=== PATIENT | male | born 1950 | race Caucasian/White ===

== ENCOUNTER → 2016-12-05 | Outpatient (CLI) | payer MEDICARE ==
--- NOTE | 2016-12-05 10:56 | FL ---
EXAMINATION: Cervical and Thoracic Esophagram DATE OF EXAM: 12/05/2016 9:19 AM CLINICAL INDICATION: 66-year-old male dysphagia, complaining of food getting stuck in the upper chest level. COMPARISON: Correlation CT 03/28/2011 Total Fluoroscopy Time: 2 minutes 18 seconds. FINDINGS: There is an initial episode of deep penetration with coating of the false cords. No jean paul aspiration seen. Otherwise, hypopharyngeal anatomy is preserved. The upper to middle third thoracic esophagus appears to have normal course, caliber, and motility. However, there is marked tortuosity and contour abnormality of the distal third esophagus with almost a corkscrew appearance and a couple large diverticula. There is dysmotility along this segment of the esophagus with prolonged pooling of contrast despite u pright positioning. A small hiatal hernia is present. Gastroesophageal reflux was not seen during the course of the exam . IMPRESSION: 1. Markedly tortuous distal third segment of the esophagus with segments of narrowing and dilatation and a couple large diverticula as well. Findings could be secondary to prior infection or inflammati on with subsequent stricture formation. Patient does not complain of any active pain to suggest esoph ageal spasm. The patient also denies any heartburn though stricturing and pulsion diverticula formati on from reflux esophagitis is also in the differential. Direct visualization should be considered. 2. Small hiatal hernia. 3. A single episode of deep laryngeal penetration during swallowing probably incidental. Clinically c orrelate. No aspiration.
== END | disposition home or self-care (01) ==
LOC: RADFLWHC 08:36
PROVIDERS: ATTEND Surgery
DX: K22.2 Esophageal obstruction (principal); K22.5 Diverticulum of esophagus, acquired; K22.8 Other specified diseases of esophagus; K44.9 Diaphragmatic hernia without obstruction or gangrene
CPT/HCPCS: 74220

== ENCOUNTER → 2016-12-27 | Day surgery (SDC) | payer MEDICARE ==
[2016-12-25 09:13] VITALS: BMI 22.3
[2016-12-27 11:30] VITALS: BP 129/85; PULSE 71; RESP 18; TEMP 98.2
== END ==
LOC: ORWHC2ENDO 10:59
PROVIDERS: ATTEND Internal Medicine Gastroenterology
DX: R13.10 Dysphagia, unspecified (principal)
CPT/HCPCS: 91010

== ENCOUNTER 2017-06-01 11:10 | Emergency (ER) | payer MEDICARE ==
[2017-06-01] MEDS ORDERED: HYDROmorphone 1 MG/ML 1 ML SYRINGE IM STA (11:18)
[2017-06-01] MEDS ORDERED: DIPH,PERTUS(ACELL)TETVAC-LF 0.5 ML VIAL IM ONE (11:18)
[2017-06-01 11:37] LABS: Basophils # (A) 0.1 k/uL (0-0.2); Basophils % (A) 1 %; CH 30.6; Eosinophils # (A) 0.1 k/uL (0-0.7); Eosinophils % (A) 1 %; HCT 45.8 % (39.0-53.0); HDW 2.66; HGB 15.8 gm/dL (13.0-17.5); Luc # (Auto) 0.15; Luc % (Auto) 2; Lymphocytes # (A) 2.5 k/uL (1.0-4.8); Lymphocytes % (A) 31 %; MCH 30.3 pg (25.0-35.0); MCHC 34.6 g/dL (31.0-37.0); MCV 87.7 fL (80.0-100.0); Mean Platelet Volume 6.9; Monocytes # (A) 0.5 k/uL (0-1.0); Monocytes % (A) 6 %; Neutrophils # (A) 4.9 k/uL (1.3-7.7); Neutrophils % (A) 60 %; RBC 5.23 m/uL (4.30-5.90); RDW 13.1 % (11.5-15.5); WBC 8.2 k/uL (3.8-10.6); WBC (Perox) 8.57
[2017-06-01 11:49] LABS: ALT 34 U/L (21-72); AST 26 U/L (17-59); Alkaline Phosphatase 75 U/L (38-126); Anion Gap 10 mmol/L; Blood Urea Nitrogen 20 mg/dL (9-20); Calcium 9.3 mg/dL (8.4-10.2); Carbon Dioxide 24 mmol/L (22-30); Chloride 105 mmol/L (98-107); Glucose 110 mg/dL (74-99); Non-African American GFR(MDRD) >60 (>60 ml/min/1.73 sqM); Potassium 3.9 mmol/L (3.5-5.1); Sodium 139 mmol/L (137-145); Total Bilirubin 0.8 mg/dL (0.2-1.3); Total Protein 6.9 g/dL (6.3-8.2)
[2017-06-01 11:50] LABS: Partial Thromboplastin Time 25.1 sec (22.0-30.0); Prothrombin Time 10.6 sec (9.0-12.0)
[2017-06-01] MEDS ORDERED: LORazepam 2 MG/ML SYRINGE IV STA (12:18)
[2017-06-01] MEDS ORDERED: HYDROmorphone 1 MG/ML 1 ML SYRINGE IVP STA ×3 (12:18→14:21)
--- NOTE | 2017-06-01 13:06 | XR ---
EXAMINATION TYPE: XR pelvis AP view, XR Hip Complete RT DATE OF EXAM: 06/01/2017 CLINICAL HISTORY: Pelvic and right hip pain after fall injury. TECHNIQUE: A single AP view of the pelvis is obtained. Two views of the right hip are obtained. COMPARISON: CT abdomen and pelvis March 28, 2011. FINDINGS: There is cortical disruption involving inner ring right acetabulum system with age indeterminate frac ture is no definitive lucency is identified, finding is new from March 28, 2011 CT. The hip and sacroi liac joints are maintained bilaterally. Pubic symphysis is maintained. There is asymmetric soft tissu e prominence on this level causing bladder deviation to the left. Two views of right hip show no additional acute fracture or dislocation. No focal lytic or sclerotic lesion seen in the proximal right femur. The overlying soft tissue is unremarkable. IMPRESSION: There is age indeterminant impaction fracture right acetabulum, acute comminuted fractur es suspected. Clinical correlation and correlation with mechanism of injury identified to help determ ine need for further investigation by CT scan.
--- NOTE | 2017-06-01 13:07 | XR ---
EXAMINATION TYPE: XR chest 1V portable DATE OF EXAM: 06/01/2017 COMPARISON: NONE HISTORY: Fall injury with chest pain. TECHNIQUE: Single frontal view of the chest is obtained. FINDINGS: There is chronic parenchymal change without suspicious focal air space opacity, pleural ef fusion, or pneumothorax seen. There is tracheal deviation to right of midline with asymmetric soft t issue prominence left paratracheal region. Consider thyroid goiter, other etiologies are not excluded . Need to further investigate by CT exam should be considered based on correlation with old outside x -rays. Exam is suboptimal as entire lung apices are not included. The cardiac silhouette size is with in normal limits. The osseous structures are intact. IMPRESSION: No acute cardiopulmonary process.
--- NOTE | 2017-06-01 13:08 | XR ---
EXAMINATION TYPE: XR shoulder complete RT DATE OF EXAM: 06/01/2017 CLINICAL HISTORY: Fall injury with right shoulder pain. TECHNIQUE: 2 views of the right shoulder are obtained. COMPARISON: None. FINDINGS: Osseous structures are demineralized. There is no acute fracture/dislocation evident in th e right shoulder. Moderate to severe Joint space loss and spurring glenohumeral joint and acromioclav icular joints is present. The visualized ribs are intact and unremarkable. IMPRESSION: There is no acute fracture or dislocation in the right shoulder.
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
[2017-06-01 14:27] VITALS: BP 120/68; PULSE 68; RESP 20; TEMP 97.8
== END 2017-06-01 14:20 | disposition other institution (70) ==
LOC: EC 11:10
DX: S32.401A Unspecified fracture of right acetabulum, initial encounter for closed fracture (principal); S80.211A Abrasion, right knee, initial encounter; S40.211A Abrasion of right shoulder, initial encounter; Z85.828 Personal history of other malignant neoplasm of skin; Z87.891 Personal history of nicotine dependence; Z88.0 Allergy status to penicillin; Z23 Encounter for immunization; V29.9XXA Motorcycle rider (driver) (passenger) injured in unspecified traffic accident, initial encounter; Y92.89 Other specified places as the place of occurrence of the external cause
CPT/HCPCS: 99291 ×2; 96374 ×2; 96375 ×2; 96376 ×2; 96372 ×2; 90471 ×2; 36415; 93005; 86900; 86901; 80053; 85025; 85610; 85730; 86850; 71010; 72170; 73502; 73030; 90715; J2060; J1170

== ENCOUNTER → 2017-11-13 | Outpatient (CLI) | payer MEDICARE ==
--- NOTE | 2017-11-13 11:43 | BD ---
EXAMINATION TYPE: MG DEXA axial skeleton. DATE OF EXAM: 11/13/2017 COMPARISON: NONE CLINICAL HISTORY: Osteoporosis screening . Postmenopausal female. Height: 5 ft 9 in Weight: 169 FRAX RISK QUESTIONS: Alcohol (3 or more units per day): NO Family History (Parent hip fracture): Glucocorticoids (More than 3mos): NO (Ex: prednisone, prednisolone, methylprednisolone, dexamethasone, and hydrocortisone). History of Fracture in Adulthood: YES Secondary Osteoporosis: 1. Type 1 Diabetes: NO 2. Hyperthyroidism: NO 3. Menopause before 45: NA 4. Malnutrition: NO 5. Chronic liver disease: NO Rheumatoid Arthritis: NO Current Tobacco Use: NO RISK FACTORS HISTORY OF: Hip Fracture (Right/Left): RT When: MAY 2017 History of Wrist Fracture: LT When: Surgery to Spine/Hip(right/left)/Wrist (right/left): RT HIP When: 2016 Active: YES Lost more than 2 inches in height since high school: YES MEDICATIONS: Additional Medications: NONE CALCIUM VIT D 3 Additional History: EXAM MEASUREMENTS: Bone mineral densitometry was performed using the [employer] System. Bone mineral density as measured about the Lumbar spine is: ----- L1-L4(G/cm2): 0.929 T Score Values are as follows: ----- L2: -2.5 ----- L3: -2.1 ----- L4: -2.2 ----- L1-L4: -2.1 BASELINE Bone mineral density about the L hip (g/cm2): 0.875 T Score values are as follows: -----L Neck: -1.2 -----L Total: -0.7 BASELINE IMPRESSION: Osteopenia (T Score between -2.5 and -1) as noted by T score values with regards to the lumbar spine and left hip. Note values approach osteoporosis within the lumbar spine. There is slightly increased risk of fracture and the patient may be considered for treatment. Re-Screen 2-5 years. NOTE: T-SCORE=SD OF THE YOUNG ADULT MEAN.
== END | disposition home or self-care (01) ==
LOC: RADBDWWP 08:39
PROVIDERS: ATTEND Internal Medicine
DX: M85.88 Other specified disorders of bone density and structure, other site (principal); M85.852 Other specified disorders of bone density and structure, left thigh; M81.0 Age-related osteoporosis without current pathological fracture
CPT/HCPCS: 77080

== ENCOUNTER → 2018-08-13 | Outpatient (CLI) | payer MEDICARE ==
--- NOTE | 2018-08-13 23:06 | US ---
EXAMINATION TYPE: US carotid duplex BILAT DATE OF EXAM: 08/13/2018 COMPARISON: NONE CLINICAL HISTORY: 67-year-old male I65.23 STENOSIS OF CAROTID ARTERIES. Stenosis TECHNIQUE: Carotid duplex ultrasound examination. Indirect Doppler criteria was utilized. FINDINGS: EXAM MEASUREMENTS: RIGHT: Peak Systolic Velocity (PSV) cm/sec ----- Right CCA: 112.9 ----- Right ICA: 122.6 ----- Right ECA: 138.6 ICA/CCA ratio: 1.1 RIGHT: End Diastole cm/sec ----- Right CCA: 34.2 ----- Right ICA: 36.2 ----- Right ECA: 25.0 LEFT: Peak Systolic Velocity (PSV) cm/sec ----- Left CCA: 107.8 ----- Left ICA: 120.5 ----- Left ECA: 133.4 ICA/CCA ratio: 1.1 LEFT: End Diastole cm/sec ----- Left CCA: 35.5 ----- Left ICA: 31.8 ----- Left ECA: 25.2 VERTEBRALS (direction of flow): Right Vertebral: Antegrade Left Vertebral: Antegrade Rhythm: Normal Mild atherosclerotic plaque is present bilaterally. No elevated velocities, no significant stenosis. Thyroid: 5.2 x 4.0 x 4.5cm mixed nodule left lobe IMPRESSION: 1. No hemodynamically significant stenosis appreciated in either internal carotid artery. 2. Incidentally, there is a 5.2 cm mixed solid cystic, but primarily solid nodule in the left lobe. D edicated thyroid ultrasound could be performed. FNA may be indicated. Criteria for Assigning % of Stenosis / Diameter reduction (Estimation based on the indirect measurements of the internal carotid artery velocities (ICA PSV). 1. Normal (no stenosis)=ICA PSV < 125 cm/s: ratio < 2.0: ICA EDV<40 cm/s. 2. Less than 50% stenosis=ICA PSV < 125 cm/s: ratio < 2.0: ICA EDV<40 cm/s. 3. 50 to 69% stenosis=ICA PSV of 125 to 230 cm/s: ration 2.0 ? 4.0: ICA EDV 40-100 cm/s. 4. Greater than 70% stenosis to near occlusion= ICA PSV > 230 cm/s: ratio > 4.0: ICA EDV > 100 cm/s. 5. Near occlusion= ICA PSV velocities may be low or undetectable: variable ratio and ICA EDV. 6. Total occlusion=unable to detect flow.
== END ==
LOC: RADUSWWP 15:32
PROVIDERS: ATTEND Internal Medicine
DX: I65.23 Occlusion and stenosis of bilateral carotid arteries (principal)
CPT/HCPCS: 93880

== ENCOUNTER → 2018-08-28 | Outpatient (CLI) | payer MEDICARE ==
--- NOTE | 2018-08-28 17:19 | US ---
EXAMINATION TYPE: US thyroid st tissue head/neck DATE OF EXAM: 08/28/2018 COMPARISON: NONE CLINICAL HISTORY: E04.1 thyroid nodule. Difficult exam due to large thyroid nodule- difficult to pene trate. GLAND SIZE: Right Lobe: 4.0 x 1.4 x 1.3 cm Overall Parenchyma: homogenous Left Lobe: 8.2 x 4.6 x 5.5 cm Overall Parenchyma: Difficult to visualize any normal thyroid tissue Isthmus Thickness: 0.4 cm NODULES RIGHT: # of nodules measured on right: 1 1. 0.3 X 0.3 x 0.3 cm isoechoic mixed nodule at the mid pole with well-defined margins; . This nod ule is wider than tall and shows intranodular vascularity. Prior size: x x cm LEFT: # of nodules measured on left: 2 1. 2.1 X 1.5 x 2.0 cm hypoechoic solid nodule at the upper pole with well-defined margins; . This nodule is wider than tall and shows intranodular vascularity. Prior size: No previous 2. 5.6 X 4.6 x 4.4 cm hypoechoic mixed nodule at the mid pole with well-defined margins; . This nod ule is wider than tall and shows intranodular vascularity. Prior size: no previous ISTHMUS: # of nodules measured in the isthmus: 0 Bilateral neck scanned, no evidence of lymphadenopathy. IMPRESSION: 1. Two left thyroid nodules larger than 1 cm. Consider nuclear medicine scan for correlation.
== END | disposition home or self-care (01) ==
LOC: RADUSWWP 16:16
PROVIDERS: ATTEND Internal Medicine
DX: E04.2 Nontoxic multinodular goiter (principal)
CPT/HCPCS: 76536

== ENCOUNTER → 2018-09-16 | Outpatient (CLI) | payer MEDICARE ==
--- NOTE | 2018-09-17 11:43 | NM ---
EXAMINATION TYPE: NM thyroid image w uptake DATE OF EXAM: 09/17/2018 COMPARISON: Ultrasound 08/28/2018 HISTORY: 67-year-old male with thyroid nodule TECHNIQUE: Thyroid iodine uptake is calculated and images performed after the oral administration of 313 uCi 1-123 Capsule. FINDINGS: Thyroid scan shows large cold nodule involving the left mid and lower pole extending just below the l evel of the suprasternal notch. The 4 hour iodine uptake is calculated at 8.0% (normal range 8-14%). The 24-hour iodine uptake is jamar culated at 18.8% (normal range 15-35%). IMPRESSION: Large cold nodule at the left mid and lower pole corresponding to the large 5.6 cm nodule seen on ult rasound. The other 2.1 cm left-sided nodule may also be a cold nodule as it is not distinctly identif ied on the thyroid scan. No abnormal increased iodine uptake to suggest a hyperactive nodule. FNA can be performed on the 2 large left-sided nodules.
== END | disposition home or self-care (01) ==
LOC: RADNMMAIN 08:41
PROVIDERS: ATTEND Internal Medicine
DX: E04.2 Nontoxic multinodular goiter (principal)
CPT/HCPCS: 78014; A9516

== ENCOUNTER 2018-10-06 08:05 | Day surgery (SDC) | payer MEDICARE ==
[2018-10-06 08:25] VITALS: BP 166/84; PULSE 87; RESP 20; TEMP 98.1
--- NOTE | 2018-10-06 10:11 | US ---
ULTRASOUND GUIDED FNA THYROID BIOPSY: CLINICAL HISTORY: Request for 2 left-sided thyroid nodules FNA FINDINGS: The procedure was explained to the patient. The risks, complications, benefits and alternatives were discussed and any questions were answered. Informed consent was obtained. Patient was placed supin e on the ultrasound table and prepped and draped in the usual sterile fashion. Utilizing a 25 gauge needle, five passes were made into the the requested 2 left-sided thyroid nodules. Patient was stable throughout the procedure. Pathology is pending. All elements of maximal barrier technique were utilized. IMPRESSION: 1. Successful ultrasound guided FNA thyroid biopsy.
== END 2018-10-06 09:45 | disposition home or self-care (01) ==
LOC: RADPROMAIN 08:05
PROVIDERS: ATTEND Internal Medicine
DX: E04.2 Nontoxic multinodular goiter (principal)
CPT/HCPCS: 10022; 76942; 88173; 88305

== ENCOUNTER 2021-02-10 08:45 | Day surgery (SDC) | payer MEDICARE ==
[2021-02-07 15:43] VITALS: BMI 21.6
[~2021-02-10 08:45] MED LIST: LACTATED RINGERS 1,000 ML IV SCH; LIDOCAINE 1% (10MG/ML) FOR IV START INTRADERMA PRN
[2021-02-10 09:06] VITALS: RESP 16; TEMP 97.6
[2021-02-10] MEDS ORDERED: PROPOFOL 10 MG/ML 20 ML VIAL IV ONE (09:30)
--- NOTE | 2021-02-10 09:46 | P.PCN ---
Date of Procedure: 02/10/21 Procedure(s) Performed: BRIEF HISTORY: Patient is a 70-year-old pleasant 8 male scheduled for an elective colonoscopy as a part of evaluation of prior history of colon polyps. Last colonoscopy was 5 years ago. PROCEDURE PERFORMED: Colonoscopy with biopsy PREOPERATIVE DIAGNOSIS: History of colon polyps. IV sedation per Anesthesia. PROCEDURE: After informed consent was obtained, the patient, was brought into the endoscopy unit. IV sedation was administered by Anesthesia under continuous monitoring. Digital rectal examination was normal. Initially the Olympus CF-160 flexible video colonoscope was then inserted in the rectum, gradually advanced into the cecum without any difficulty. Careful examination was performed as the scope was gradually being withdrawn. Ileocecal valve and the appendiceal orifice were visualized and appeared normal. Prep was excellent. Mucosa of the cecum, ascending colon, transverse colon, descending colon, sigmoid colon, and rectum appeared normal. Retroflexion was performed in the rectum and there was prominent mucosa noted just proximal to the dentate line measuring about 1 cm and possibility of polyp vsrectal prolapse was considered. Multiple biopsies were done from this area. Scattered sigmoid diverticulosis seen.. The patient tolerated the procedure well. IMPRESSION: Distal rectal polyp versus rectal prolapse just proximal to the dentate line status post biopsies Scattered sigmoid diverticulosis RECOMMENDATIONS: Findings of this examination were discussed with the patient as well as his family.. He was advised to follow with the biopsy results. If the biopsy reveals adenoma he can have a repeat colonoscopy in 5 years
[2021-02-10 10:22] VITALS: BP 137/86; PULSE 69
== END 2021-02-10 10:38 | disposition home or self-care (01) ==
LOC: ORWHC2ENDO 08:45
PROVIDERS: ATTEND Internal Medicine Gastroenterology
DX: Z12.11 Encounter for screening for malignant neoplasm of colon (principal); K62.1 Rectal polyp; K57.30 Diverticulosis of large intestine without perforation or abscess without bleeding; Z88.1 Allergy status to other antibiotic agents; Z85.828 Personal history of other malignant neoplasm of skin; Z86.010 Personal history of colon polyps
CPT/HCPCS: 88305; 45380; J2704

== ENCOUNTER 2022-04-27 11:17 | Day surgery (SDC) | payer MEDICARE ==
[2022-04-25 15:20] VITALS: BMI 22.3
[~2022-04-27 11:17] MED LIST changes: -LIDOCAINE 1% (10MG/ML) FOR IV START INTRADERMA PRN
[2022-04-27 11:45] VITALS: RESP 16; TEMP 97.2
[2022-04-27] MEDS ORDERED: LIDOCAINE 2% INJ 20 MG/ML (2 ML VIAL) ONE (12:37)
[2022-04-27] MEDS ORDERED: PROPOFOL 10 MG/ML 20 ML VIAL IV ONE (12:37)
--- NOTE | 2022-04-27 12:55 | P.PCN ---
Date of Procedure: 04/27/22 Procedure(s) Performed: BRIEF HISTORY: Patient is a 71-year-old, pleasant, white male scheduled for an upper endoscopy as a possible dilation as a part of evaluation of intermittent dysphagia to solids for the last 5 years duration.. PROCEDURE PERFORMED: Esophagogastroduodenoscopy with balloon dilation. PREOPERATIVE DIAGNOSIS: Intermittent dysphagia to solids of 5 years duration. IV sedation per anesthesia. PROCEDURE: After informed consent was obtained, the patient was brought into the endoscopy unit. IV sedation was administered by Anesthesia under continuous monitoring. Initially the Olympus GIF-140 video endoscope was inserted into the mouth. Esophagus intubated without any difficulty. It was gradually advanced into the stomach and duodenum and carefully examined. The bulb and the second part of the duodenum appeared normal. The scope at this time was withdrawn to the stomach, adequately insufflated with air, and upon careful examination, mucosa of the antrum, body, cardia and the fundus appeared normal. The scope was then withdrawn into the esophagus. The GE junction was located at 39 cm from the incisors. There was a distal esophageal whitish patent Schatzki's ring identified that was empirically dilated using 18-20 mm TTS balloon in a sequential fashion for 30 seconds. The entire esophagus had a corkscrew like appearance of intermittent esophageal diverticulum suspicious for severe esophageal dysmotilityl. There were no erosions or ulcerations seen and the patient tolerated the procedure well. IMPRESSION: 1. Corkscrew appearance of the entire esophagus with mid esophageal diverticulum suspicious for esophageal dysmotility. 2. Widely patent distal esophageal Schatzki's ring status post balloon dilation using 18-20 mm TTS balloon as. RECOMMENDATIONS: The findings of this examination were discussed with the patient his family. He was advised to follow up in office in 6 weeks. If he continues to have persistent dysphagia to be a candidate for esophageal manometry to evaluate for esophageal dysmotility
[2022-04-27 13:17] VITALS: BP 129/89; PULSE 65
== END 2022-04-27 14:05 | disposition home or self-care (01) ==
LOC: ORWHC2ENDO 11:17
PROVIDERS: ATTEND Internal Medicine Gastroenterology
DX: K22.2 Esophageal obstruction (principal); K22.5 Diverticulum of esophagus, acquired; Z88.0 Allergy status to penicillin; Z87.891 Personal history of nicotine dependence; Z80.8 Family history of malignant neoplasm of other organs or systems
CPT/HCPCS: 43249; J2704; J2001; C1726

== ENCOUNTER → 2024-04-17 | Outpatient (CLI) | payer MEDICARE ==
[2024-04-17 10:59] LABS: African American GFR (CKD) 88 (>60 ml/min/1.73 sqM); Blood Urea Nitrogen 22 mg/dL (9-20); Non-African American GFR(CKD) 76 (>60 ml/min/1.73 sqM)
--- NOTE | 2024-04-17 14:19 | CT ---
EXAMINATION TYPE: CT abdomen pelvis w con DATE OF EXAM: 04/17/2024 COMPARISON: 03/28/2011 HISTORY: RIGHT INGUINAL PAIN CT DLP: 628.2 mGycm CONTRAST: CT scan of the abdomen and pelvis is performed with Oral Contrast and with IV Contrast, patient injec osiris with 100 mL of Isovue 300. FINDINGS: LUNG BASES-: No visible nodule. No infiltrate. Small sliding-type hiatal hernia. LIVER/GB: No calcified gallstones. No space occupying hepatic lesion. Biliary tree is of normal ca liber. PANCREAS: No inflammation. No distinct mass. SPLEEN: No splenic enlargement. No lesion seen. ADRENALS: No nodule. No thickening. KIDNEYS/BLADDER: No hydronephrosis. No nephrolithiasis. No distinct renal mass. Urinary bladder g rossly unremarkable. BOWEL: Normal appendix. Normal bowel caliber. No inflammation. Sigmoid diverticulosis without diver ticulitis. GENITAL ORGANS: No gross abnormality. LYMPH NODES: No greater than 1cm abdominal or pelvic lymph nodes are appreciated. AORTA: No significant abnormality. OSSEOUS STRUCTURES: Postoperative changes right hemipelvis. OTHER: No significant additional abnormality is seen. IMPRESSION: 1. No evidence for ascites or acute intra-abdominal process.
== END | disposition home or self-care (01) ==
LOC: RADCTMAIN 10:18
PROVIDERS: ATTEND Internal Medicine Geriatric Medicine
DX: R18.8 Other ascites (principal)
CPT/HCPCS: 82565; 84520; 74177; 36415; Q9967

== ENCOUNTER 2024-06-15 06:08 | Day surgery (SDC) | payer MEDICARE ==
[2024-06-15] MEDS ORDERED: SODIUM CHLORIDE 0.9% 50 ML BAG IV ONE (06:40)
[2024-06-15] MEDS ORDERED: LACTATED RINGERS 1,000 ML BAG ONE (06:40)
[2024-06-15] MEDS ORDERED: BUPIVACAINE (PF) 0.25% 10 ML VIAL ONE (06:40)
[2024-06-15] MEDS ORDERED: ceFAZolin 10 GM VIAL IVPB ONE (06:40)
[2024-06-15] MEDS ORDERED: ONDANSETRON 4 MG/2 ML VIAL ONE (06:54)
[2024-06-15] MEDS ORDERED: DEXAMETHASONE SOD PHOSPHATE 4 MG/ML 1 ML VIAL ONE (06:54)
[2024-06-15] MEDS ORDERED: HEPARIN SODIUM,PORCINE 5,000 UNIT/ML 1 ML VIAL ONE (06:54)
[2024-06-15] MEDS ORDERED: ACETAMINOPHEN TAB 500 MG TAB ONE (06:54)
[2024-06-15] MEDS ORDERED: NEOSTIGMINE 1 MG/ML 10 ML VIAL ONE (07:35)
[2024-06-15] MEDS ORDERED: LIDOCAINE 1% INJ 10MG/ML (20 ML MDV) ONE (07:35)
[2024-06-15] MEDS ORDERED: PROPOFOL 10 MG/ML 20 ML VIAL IV ONE (07:35)
[2024-06-15] MEDS ORDERED: SUCCINYLCHOLINE CHLORIDE 200 MG/10 ML VIAL IV ONE (07:35)
[2024-06-15] MEDS ORDERED: KETOROLAC 15 MG/ML 1 ML VIAL ONE (07:35)
[2024-06-15] MEDS ORDERED: GLYCOPYRROLATE 0.2 MG/ML 2 ML VIAL ONE (07:35)
[2024-06-15] MEDS ORDERED: MIDAZOLAM 2 MG/2 ML VIAL ONE (07:35)
[2024-06-15] MEDS ORDERED: ROCURONIUM 10 MG/ML (5 ML VIAL) IV ONE (07:35)
[2024-06-15] MEDS ORDERED: fentaNYL (PF) 50 MCG/ML 2 ML AMP ONE (07:35)
--- NOTE | 2024-06-19 15:56 | OP ---
OPERATIVE REPORT DATE OF SERVICE : 06/15/2024 PREOPERATIVE DIAGNOSES: 1. Right inguinal hernia. 2. Right hydrocele. POSTOPERATIVE DIAGNOSES: 1. Right inguinal hernia. 2. Right hydrocele. PROCEDURES: Open repair of right inguinal hernia with mesh, drainage of right hydrocele. ANESTHESIA: General. COMPLICATIONS: None. DESCRIPTION OF PROCEDURE: The patient was brought and placed on the OR table in the supine position. The patient's right groin was prepped and draped sterilely. An oblique incision was made in the right groin. Dissection through the subcutaneous tissue took place using electrocautery. Small vessel was ligated using 3-0 silk ties. External oblique was incised with a scalpel and this was lengthened with the Metzenbaum scissors. The underlying spermatic cord structures were encircled with a Emmy drain. The spermatic cord was then dissected. The patient had a moderate-sized indirect hernia sac. There was scar nodularity along the hernia sac. The hernia sac was dissected back to the internal inguinal ring and ligated using 2 separate 0 Ethibond stick tie sutures. The excess sac was excised and sent to Pathology. There was no visible direct hernia seen. A 3-inch x 6-inch Prolene mesh was cut to fit along the exposed floor of the inguinal canal. This was sutured to the pubic tubercle, folding edge of the inguinal ligament and conjoined tendon using interrupted 0 Vicryl sutures. A slit was created in the mesh. The mesh was wrecked back around the spermatic cord and sutured back to itself using 0 Ethibond stitch. The patient's hydrocele was moderate in size. I was able to press on the scrotum and the hydrocele that appeared deep to the dissection area. Once I was able to visualize the hydrocele, this was then unroofed, taking a portion of the noncommunicating hydrocele and excising that. Approximately 50 mL of serous fluid was evacuated. The area was inspected. No bleeding was seen. The external oblique was then reapproximated using a running 2-0 Vicryl suture. The subcutaneous tissues were closed using 3-0 Vicryl sutures. The skin was closed using a running 4-0 Monocryl suture. Skin glue and sterile dressing was applied. MMODL / IJN: [id number] /
== END 2024-06-15 10:35 ==
LOC: OR 06:08
PROVIDERS: ATTEND Surgery
DX: K40.90 Unilateral inguinal hernia, without obstruction or gangrene, not specified as recurrent (principal); N43.3 Hydrocele, unspecified; Z88.0 Allergy status to penicillin
CPT/HCPCS: 88302